=== PATIENT | male | born 1960 ===

== ENCOUNTER 2023-06-04 11:51 | Outpatient (REF) | payer MEDICAID, SELFPAY ==
[2023-06-05 02:34] LABS: Alanine Aminotransferase 43 U/L (0-40); Alkaline Phosphatase 63 U/L (39-117); Anion Gap 13 (12-20); Aspartate Amino Transferase 26 U/L (5-37); Bilirubin Direct < 0.1 mg/dL (0.0-0.5); Bilirubin Total 0.4 mg/dL (0.0-1.0); Blood Urea Nitrogen 15 mg/dL (9-16); Calcium 9.3 mg/dL (8.4-10.2); Carbon Dioxide 26 mmol/L (22-29); Chloride 102 mmol/L (96-108); Cholesterol 354 mg/dL; Estimated Glomerular Filt Rate > 60; Glucose Random 226 mg/dL (60-115); HDL Cholesterol 29 mg/dL; Potassium 4.2 mmol/L (3.3-5.1); Sodium 137 mmol/L (135-145); Total Protein 8.3 g/dL (6.5-8.0)
[2023-06-05 03:32] LABS: TSH reflex Free T4 > 100.00 uIU/mL (0.32-4.0)
[2023-06-05 04:00] LABS: Triglycerides 2115 mg/dL
[2023-06-05 04:21] LABS: Free T4 (Free Thyroxine) < 0.42 ng/dL (0.71-1.85)
[2023-06-05 05:17] LABS: HIV AB/AG Nonreactive (Nonreactive); HIV Num 1 0.08 S/CO (0.00-0.99)
== END 2023-06-04 11:52 | disposition home or self-care (01) ==
LOC: HO.HHCL 11:51
PROVIDERS: Visit Provider Registered Nurse
DX: Z00.00 Encounter for general adult medical examination without abnormal findings (principal); Z12.5 Encounter for screening for malignant neoplasm of prostate; Z11.4 Encounter for screening for human immunodeficiency virus [HIV]; E03.9 Hypothyroidism, unspecified; E11.65 Type 2 diabetes mellitus with hyperglycemia
CPT/HCPCS: 36415; 80053; 80061; 82248; 84153; 84439; 84443; 87389

== ENCOUNTER 2023-08-21 09:30 | Outpatient (REF) | payer MEDICAID, SELFPAY | END 2023-08-21 09:31 | disposition home or self-care (01) | LOC: HO.HHCL 09:30 | PROVIDERS: Visit Provider Registered Nurse | DX: E03.8 Other specified hypothyroidism (principal); E06.3 Autoimmune thyroiditis; E11.65 Type 2 diabetes mellitus with hyperglycemia | CPT/HCPCS: 36415; 80061; 84443 ==

== ENCOUNTER 2024-04-15 08:16 | Outpatient (AMB) | payer MEDICAID, SELFPAY ==
--- NOTE | 2024-04-15 08:24 | MHC.OFFVIS ---
Vital Signs 04/15/24 08:33 Height 5 ft 5 in Weight 203 lb 4.259 oz BMI 33.8 Intake Visit Reasons: Colonoscopy Screening Intake Note: Sree presents in the office as a new patient for a colonoscopy screening. CC: HE states that he is having numbness in the fingers. He states that he drank the gallon that was given to him so he is having diarrhea as he prepped for the colonoscopy. He states this is the second time. Hop Worker Required: Yes Hop Worker Name: [id number] Steph Allergies No Known Allergies Allergy (Verified 04/15/24 08:33) HPI HPI Colonoscopy Screening: Details: 64 year old?male with past medical history of diabetes, hypercholesteremia, hypothyroidism is here today for pre colonoscopy screening.? Patient was sent to us by his PCP.? Patient reports that his PCP send prep to pharmacy and told him to prep before going for appointment. Patient was on clear liquids yesterday and did prep and thought that he was coming in for colonoscopy today. ?Patient had colonoscopy 1 year ago, however had suboptimal prep and was told to return. Procedure was done at [facility]. Patient denies any gastrointestinal symptoms in the past or at present.? Denies any personal or family history of gastrointestinal disease, colon polyps, or CRC.? Denies history of difficulty with sedation or anesthesia in the past.? Negative for history of sleep apnea.? Denies any history of cardiac, renal, pulmonary, or hepatic disease.?? No history of infectious? diseases like hepatitis A, B, C, HIV or tuberculosis.? Patient is not on any anticoagulation Review of Systems Const Denies weight gain and Denies weight loss ENT Reports no additional complaints, Denies dysphagia and Denies odynophagia Card Reports no additional complaints Resp Reports no additional complaints GI Denies abdominal pain, Denies belching, Denies melena, Denies bloating, Denies change in bowel habits, Denies dysphagia, Denies excessive flatus, Denies dyspepsia, Denies heartburn, Denies diarrhea, Reports loose stools (Patient took prep yesterday), Denies nausea, Denies odynophagia and Denies vomiting Reports no additional complaints Musc Reports no additional complaints Neuro Reports no additional complaints Psych Reports no additional complaints Endo Reports no additional complaints Physical Exam Vital Signs: BMI result Body Mass Index 33.8 Const General: healthy appearing and no acute distress Nutritional Appearance: obese Orientation/consciousness: patient oriented x3 Resp Effort & Inspection: normal respiratory effort, able to speak in complete sentences, no tracheal deviation and symmetric chest movement Auscultation: clear to auscultation bilaterally Cardio Rate: regular rate GI Inspection: Yes normal to inspection, No distended and Yes obesity Palpation (GI): Soft to palpation, not firm, nontender and No hepatosplenomegaly present Auscultation: normal bowel sounds General: Yes no CVA tenderness Back/Spine/Pelvis Back: no CVA tenderness Skin General skin exam: elasticity normal, turgor normal and dry skin Neuro General: patient oriented x3 Psych Appearance: grossly normal Mental Status: mental status grossly normal Assessment & Plan Assessment & Plan (1) Screen for colon cancer: Code(s): Z12.11 - Encounter for screening for malignant neoplasm of colon Plan Patient denies any GI, cardiac or respiratory symptoms.? Denies any issues with anesthesia in the past.? Denies any history of sleep apnea.? No history infectious diseases in the past or present.? Not on any anticoagulation therapy.? No family or personal history of colon cancer or polyps.? Patient had suboptimal prep 1 year ago and recommendation was made for patient to repeat colonoscopy in 1 year. Patient denies melena, hematochezia, unintentional weight loss or ribbon like stools.? Discussed at length the pre-procedure,? prep, diet & medications as well as what to expect prior, during and after the procedure.?? Stressed the importance of good bowel prep.? Recommended the use of Vaseline or Calmoseptine OTC & baby wipes with bowel movements to promote comfort.? ?Patient verbalizes understanding and agrees to plan of care.? He was given the opportunity to ask questions and all questions answered.? We will see him after the procedure.? Coding Level of Care Code New Pt Level 3 (40532) Diagnoses Screen for colon cancer Z12.11 Time Spent (min) 40 Comment 30 minutes spent with patient and additional 10 minutes spent reviewing his records
[2024-04-15 08:33] VITALS: BMI 33.8
== END 2024-04-15 09:08 | disposition home or self-care (01) ==
PROVIDERS: Visit Provider Nurse Practitioner Family
DX: Z12.11 Encounter for screening for malignant neoplasm of colon (principal); Z01.818 Encounter for other preprocedural examination
CPT/HCPCS: 99203

== ENCOUNTER → 2024-04-15 08:16 | Outpatient (BNVA) | payer MEDICAID, SELFPAY | PROVIDERS: Visit Provider Nurse Practitioner Family | DX: Z12.11 Encounter for screening for malignant neoplasm of colon (principal) | CPT/HCPCS: 99202; 99212 ==

== ENCOUNTER 2024-09-23 06:06 | Day surgery (SDC) | payer MEDICAID, SELFPAY ==
[2024-09-21 09:36] VITALS: BMI 33.8
--- NOTE | 2024-09-22 08:17 | HO.ANESPROP2 ---
Documented by User: Loan Kruse NP 09/22/24 08:18 HPI - Anesthesia Eval Consult details Narrative: 64yo M for Colonoscopy Anesthesia Pre-Procedure Meds Is the patient on any of the following meds?: GLP1/DPP4 PMFSH Past Medical History Medical History Elevated cholesterol Hypothyroid HTN (hypertension) Diabetes Surgical History Surgical History H/O colonoscopy Social History Social History Patient Tobacco Use Status: Never used Tobacco Have you been hit, kicked, punched, or otherwise hurt by someone within the past year? If so, by whom?: No Are you DNR?: No Advance Directives: No Advance Directives Information Provided: Yes Meds Allergies Allergy/AdvReac Type Severity Reaction Status Date / Time No Known Allergies Allergy Verified 04/15/24 08:33 Home Medications ?Medication ?Instructions ?Recorded ?Confirmed ?Last Taken ?Type blood pressure test kit-large #1 ea 04/15/24 Unknown History blood sugar diagnostic (FreeStyle #10 ea 04/15/24 Unknown History Lite Strips) dulaglutide 1.5 mg/0.5 mL 1.5 mg subcut QWEEK 04/15/24 09/21/24 09/13/24 History subcutaneous pen injector (Trulicity) fenofibrate micronized 67 mg 67 mg PO QAM 04/15/24 09/21/24 Unknown History capsule glucose 4 gram chewable tablet 16 g PO ONCE PRN Hypoglycemia 04/15/24 09/21/24 Unknown History levothyroxine 100 mcg tablet 100 mcg PO QAM 04/15/24 09/21/24 Unknown History metformin 500 mg tablet,extended 500 mg PO BID 04/15/24 09/21/24 Unknown History release 24 hr olmesartan 5 mg tablet 5 mg PO DAILY 04/15/24 09/21/24 Unknown History rosuvastatin 20 mg tablet 20 mg PO QAM 04/15/24 09/21/24 Unknown History Exam Height,Weight and Vital Signs: Height 5 ft 5 in Weight 92.079 kg Assessment and Plan Assessment Anesthesia Assessment: Chart Reviewed Documented by User: Ivette Bruno MD 09/23/24 08:53 PMFSH Past Medical History Medical History Elevated cholesterol Hypothyroid HTN (hypertension) Diabetes Family History Family history of problems with anesthesia: No Surgical History Surgical History H/O colonoscopy History of Problems with Anesthesia: No Social History Social History Patient Tobacco Use Status: Never used Tobacco Have you been hit, kicked, punched, or otherwise hurt by someone within the past year? If so, by whom?: No Are you DNR?: No Advance Directives: No Advance Directives Information Provided: Yes Meds Allergies Allergy/AdvReac Type Severity Reaction Status Date / Time No Known Allergies Allergy Verified 04/15/24 08:33 Home Medications ?Medication ?Instructions ?Recorded ?Confirmed ?Last Taken ?Type blood pressure test kit-large #1 ea 04/15/24 Unknown History blood sugar diagnostic (FreeStyle #10 ea 04/15/24 Unknown History Lite Strips) dulaglutide 1.5 mg/0.5 mL 1.5 mg subcut QWEEK 04/15/24 09/21/24 09/13/24 History subcutaneous pen injector (Trulicity) fenofibrate micronized 67 mg 67 mg PO QAM 04/15/24 09/21/24 Unknown History capsule glucose 4 gram chewable tablet 16 g PO ONCE PRN Hypoglycemia 04/15/24 09/21/24 Unknown History levothyroxine 100 mcg tablet 100 mcg PO QAM 04/15/24 09/21/24 Unknown History metformin 500 mg tablet,extended 500 mg PO BID 04/15/24 09/21/24 Unknown History release 24 hr olmesartan 5 mg tablet 5 mg PO DAILY 04/15/24 09/21/24 Unknown History rosuvastatin 20 mg tablet 20 mg PO QAM 04/15/24 09/21/24 Unknown History Exam Airway Mallampati Class: II TM Dist: >3cm Neck ROM: Limited Loose/Missing/Broken Teeth: Yes Heart: rrr Lungs: cta Assessment and Plan Assessment Anesthesia Assessment: Anesthesia Plan Discussed Final Anesthetic Review Family History of Problems with Anesthesia: No History of Problems with Anesthesia: No NPO: Yes ASA Class: III Final Preanesthetic Review: No Changes in Pt Med Stat, Meds/Allgs Chart Reviewed, Consent Obtained/Reviewed and Anes Risks/Benef Reviewed Patient Risk: Intermediate Procedure Risk: Low Anesthetic Plan Anesthetic Plan: MAC: Disposition: Standard PACU
[2024-09-23 06:38] VITALS: BP 150/96; PULSE 80; RESP 20; TEMP 36.9; O2SAT 97; BMI 33.5
[2024-09-23 07:01] LABS: Glucose, Whole Blood 106 mg/dL (60-115)
[2024-09-23] MEDS: Lactated Ringers 1,000 ML 100 ML IVCONT (07:05)
--- NOTE | 2024-09-23 08:55 | MHC.SHP ---
Pre-Procedural Eval Section A - 24 Hr Update-Section A only Date of Service: 09/23/24 Section B - Complete if H&P > 30 days Chief Complaint: Encounter for screening for malignant neoplasm of Details of Present Illness: diabetes, hypercholesteremia, hypothyroidism Allergies: Allergies Allergy/AdvReac Type Severity Reaction Status Date / Time No Known Allergies Allergy Verified 04/15/24 08:33 Review of Systems Review of Systems Comment: Ten point ROS negative Exam Exam Comment: Gen appear: No acute distress HEENT: no icterus Chest: No overt resp distress Abd: soft, nontender, nondistended Psych: Stable affect, answering questions appropriately Neuro: A/Ox3 noted to move all extremities spontaneously Ext: no peripheral edema Plan Diagnosis/Plan: Unchanged I have reviewed the history and physical and performed a pertinent physical examination on my patient. No changes have occurred unless specified. Time Spent With Patient Time: Total time managing care of this patient today ____ minutes.
[2024-09-23 09:27] VITALS: BP 116/65; PULSE 80; RESP 16; TEMP 36.1; O2SAT 96
--- NOTE | 2024-09-23 09:35 | P.OPN-COLO_ITS ---
Colonoscopy Operative Note Operative Note Date of Service: 09/23/24 Narrative: Procedure: Colonoscopy Indication: Screening Endoscopist: Jimena Encarnacion MD Anesthesia Provider: Kathrine Sandhu CRNA Anesthesia type: MAC Instrument: Olympus [id number]-[id number] Consent: Indication, risks vs benefits, and alternatives were discussed with the patient who gave written informed consent to proceed. An muskrat trapper was utilized to assist with the consent. EKG, pulse, pulse oximetry and blood pressure were monitored throughout the procedure. Please see anesthesia flowsheet. Procedure: The patient was brought to the procedure room and placed in the left lateral decubitus position. IV medications were administered by the anesthesia provider in attendance. A digital rectal exam was performed which was normal. A distal attachment cap was affixed to the tip of the colonoscope which was then inserted through the anus and advanced through the colon to the cecum at 85 cm,and terminal ileum. Appendiceal orifice and ileocecal valve were identified. Mucosa was carefully examined under high definition white light as the instrument was slowly withdrawn in a retrograde panoramic fashion. Retroflexion was performed in rectum. The procedure was somewhat difficult. There were no immediate obvious complications. The quality of the prep was BBPS: 2+3+2 = adequate Withdrawal time 12 minutes. Limitations: No limitations. Findings: Mucosa: Normal to cecum and terminal ileum. Protruding lesions: * 2 sessile polyps of size 4-6 mm in transverse colon. Cold snare polypectomy was performed. The polyp was completely removed and retrieved. * Medium internal hemorrhoids without stigmata of recent bleeding. Excavated lesions: * Mild diverticulosis of left colon Impression: 1. Normal colon mucosa 2. Total of 2 polyps removed 3. Internal hemorrhoids 4. Diverticulosis Recommendations: - Follow path results. - Repeat colonoscopy in 5-7 years if polyps are adenomas.
[2024-09-23 09:43] VITALS: BP 101/68; PULSE 74; RESP 16; TEMP 36.1; O2SAT 97
== END 2024-09-23 10:31 | disposition home or self-care (01) ==
PROVIDERS: PCP Registered Nurse; Visit Provider Internal Medicine
PROC: 0DJD8ZZ Inspection of Lower Intestinal Tract, Via Natural or Artificial Opening Endoscopic (ICD-10-PCS; CPT 45378; principal; 2024-09-23 07:40)
DX: Z12.11 Encounter for screening for malignant neoplasm of colon (principal); D12.3 Benign neoplasm of transverse colon; K57.30 Diverticulosis of large intestine without perforation or abscess without bleeding; K64.8 Other hemorrhoids; E11.9 Type 2 diabetes mellitus without complications; I10 Essential (primary) hypertension; E78.00 Pure hypercholesterolemia, unspecified; E03.9 Hypothyroidism, unspecified; Z79.02 Long term (current) use of antithrombotics/antiplatelets; Z79.84 Long term (current) use of oral hypoglycemic drugs; Z79.4 Long term (current) use of insulin
CPT/HCPCS: 45385; 82947; 88305; J2003; J2704

== ENCOUNTER → 2024-09-23 06:06 | Outpatient (BNV) | payer MEDICAID, SELFPAY | PROVIDERS: PCP Registered Nurse; Visit Provider Internal Medicine | DX: Z12.11 Encounter for screening for malignant neoplasm of colon (principal); D12.3 Benign neoplasm of transverse colon; K64.8 Other hemorrhoids; K57.30 Diverticulosis of large intestine without perforation or abscess without bleeding | CPT/HCPCS: 45385 ==

== ENCOUNTER 2024-10-20 13:27 | Outpatient (AMB) | payer MEDICAID, SELFPAY ==
[2024-10-20 13:27] VITALS: BP 148/92; PULSE 82; O2SAT 96; BMI 34.2
--- NOTE | 2024-10-20 13:27 | A.OFFVIS_ITS ---
Vital Signs 10/20/24 13:27 Height 5 ft 5 in Weight 205 lb 7.533 oz BMI 34.2 BP 148/92 H Blood Pressure Location Lt brachial Position Sitting Pulse 82 Pulse Source Pulse Oximeter Pulse Oximetry (%) 96 Oxygen Delivery Method Room Air Intake Visit Reasons: s/p colon Intake Note: Relevant Flags or Indicators ? Requires Supervisor Major Appliance Assembly? Y Sree presents in office today for a scheduled s/p FUV (colo) CC; No recent labs, diagnostics, or med orders placed. ? Relevant new concerns or significant changes? No significant changes per pt. ? Hx of any recent surgeries? [place] w/ Dr. Encarnacion Supervisor Major Appliance Assembly Required: Yes Supervisor Major Appliance Assembly Services: Supervisor Major Appliance Assembly Present Supervisor Major Appliance Assembly Name: [id number] Braden Hodge Information Interpreted: non-clinical & clinical Accompanied by: Family/Other Allergies No Known Allergies Allergy (Verified 10/20/24 13:28) HPI HPI s/p colon: Details: LAST VISIT: Screen for colon cancer Plan Patient denies any GI, cardiac or respiratory symptoms.? Denies any issues with anesthesia in the past.? Denies any history of sleep apnea.? No history infectious diseases in the past or present.? Not on any anticoagulation therapy.? No family or personal history of colon cancer or polyps.? Patient had suboptimal prep 1 year ago and recommendation was made for patient to repeat colonoscopy in 1 year. Patient denies melena, hematochezia, unintentional weight loss or ribbon like stools.? Discussed at length the pre-procedure,? prep, diet & medications as well as what to expect prior, during and after the procedure.?? Stressed the importance of good bowel prep.? Recommended the use of Vaseline or Calmoseptine OTC & baby wipes with bowel movements to promote comfort.? ?Patient verbalizes understanding and agrees to plan of care.? He was given the opportunity to ask questions and all questions answered.? We will see him after the procedure.? COLONOSCOPY: Findings: Mucosa: Normal to cecum and terminal ileum. Protruding lesions: * 2 sessile polyps of size 4-6 mm in transverse colon. Cold snare polypectomy was performed. The polyp was completely removed and retrieved. * Medium internal hemorrhoids without stigmata of recent bleeding. Excavated lesions: * Mild diverticulosis of left colon Impression: 1. Normal colon mucosa 2. Total of 2 polyps removed 3. Internal hemorrhoids 4. Diverticulosis Recommendations: - Follow path results. - Repeat colonoscopy in 5-7 years if polyps are adenomas. PATHOLOGY: Diagnosis Colon, transverse, polypectomies: - Tubular adenoma; negative for high-grade dysplasia or carcinoma. - Hyperplastic mucosal polyp TODAY'S VISIT: Patient is here today for follow-up and to discuss colonoscopy results. Patient denies any ill effects from the prep, anesthesia or procedure itself. Patient reports that he has been feeling well since the procedure. Denies any GI concerning symptoms. No family history of CRC. One hyperplastic polyp and 1 tubular adenoma without high-grade dysplasia or carcinoma. Recommendation for 5 year screening. Patient denies melena, hematochezia, unintentional weight loss or ribbon like stools. Denies dyspepsia, dysphagia or odynophagia PFSH Medical History (Updated 10/20/24 @ 14:04 by Mana Baker [facility]) Tubular adenoma of colon Elevated cholesterol Hypothyroid HTN (hypertension) Diabetes Surgical History (Reviewed 10/20/24 @ 13:28 by Dayne Scott [facility]) H/O colonoscopy Social History Patient Tobacco Use Status: Never used Tobacco Review of Systems Const Denies weight gain and Denies weight loss ENT Reports no additional complaints, Denies dysphagia and Denies odynophagia Card Reports no additional complaints Resp Reports no additional complaints GI Denies abdominal pain, Denies belching, Denies melena, Denies bloating, Denies change in bowel habits, Denies dysphagia, Denies excessive flatus, Denies dyspepsia, Denies heartburn, Denies diarrhea, Denies loose stools, Denies nausea, Denies odynophagia and Denies vomiting Reports no additional complaints Musc Reports no additional complaints Neuro Reports no additional complaints Psych Reports no additional complaints Endo Reports no additional complaints Physical Exam Vital Signs: Last Vital Signs Pulse 82 10/20/24 13:27 BP 148/92 H 10/20/24 13:27 Pulse Ox 96 10/20/24 13:27 Oxygen Delivery Method Room Air 10/20/24 13:27 BMI result Body Mass Index 34.2 Const General: healthy appearing and no acute distress Nutritional Appearance: obese Orientation/consciousness: patient oriented x3 Resp Effort & Inspection: normal respiratory effort, able to speak in complete sentences, no tracheal deviation and symmetric chest movement Auscultation: clear to auscultation bilaterally Cardio Rate: regular rate GI Inspection: Yes normal to inspection, No distended and Yes obesity Palpation (GI): Soft to palpation, not firm, nontender and No hepatosplenomegaly present Auscultation: normal bowel sounds General: Yes no CVA tenderness Back/Spine/Pelvis Back: no CVA tenderness Skin General skin exam: elasticity normal, turgor normal and dry skin Neuro General: patient oriented x3 Psych Appearance: grossly normal Mental Status: mental status grossly normal Assessment & Plan Assessment & Plan (1) Tubular adenoma of colon: Code(s): D12.6 - Benign neoplasm of colon, unspecified Category: Medical (2) Status post colonoscopy: Code(s): Z98.890 - Other specified postprocedural states Plan Next colo screen in 5 years. Patient will be due in September of 2029. One tubular adenoma without high-grade dysplasia or carcinoma found. Patient denies any family history of CRC. Denies any melena, hematochezia. No GI concerning symptoms. Patient will call our office if he will have any concerns. Follow-up as needed. Patient is agreeable to current plan of care and verbalizes understanding of instructions. He was given the opportunity to ask questions and all questions answered. Thank you for allowing me to participate in his care Coding Level of Care Code Est Pt Level 3 (27574) Diagnoses Tubular adenoma of colon D12.6 Status post colonoscopy Z98.890 Time Spent (min) 25 Comment 15 minutes spent with patient and additional 10 minutes spent reviewing his records
== END 2024-10-20 14:21 | disposition home or self-care (01) ==
PROVIDERS: Visit Provider Nurse Practitioner Family
DX: D12.6 Benign neoplasm of colon, unspecified (principal); Z98.890 Other specified postprocedural states
CPT/HCPCS: 99213

== ENCOUNTER → 2024-10-20 13:27 | Outpatient (BNVA) | payer MEDICAID, SELFPAY | PROVIDERS: Visit Provider Nurse Practitioner Family | DX: D12.6 Benign neoplasm of colon, unspecified (principal); Z98.890 Other specified postprocedural states | CPT/HCPCS: 99212 ==

== ENCOUNTER 2025-07-06 11:35 | Outpatient (REF) | payer MEDICARE, SELFPAY ==
--- NOTE | ~2025-07-06 | XR_ITS ---
EXAMINATION: XR FOOT, RIGHT CLINICAL INFORMATION: 64 y.o male with hx of gout at first MCP joint COMPARISON: None available. TECHNIQUE: AP, lateral, and oblique views of the right foot. FINDINGS: Moderate enthesophytes are present involving fascial and Achilles attachments onto calcaneus. There are marginal osteophytes involving the tibial plafond. There are small marginal ossified involving the dorsal midfoot. There is hallux valgus deformity. There are degenerative changes with moderate marginal osteophytes involving the first MTP joint with mild joint space narrowing. There is a possible marginal erosion with overhanging margins involving the lateral first metatarsal head. There is also faint osteopenia involving the medial base of the proximal phalanx. There are marginal osteophytes involving the second PIP joint. 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 Suspected erosive change involving the medial base of the proximal phalanx of the great toe. Possible changes involving the lateral first metatarsal head. 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 Electronically signed by: Kiran Jay MD 07/06/2025 12:34 PM EDT
--- OUTSIDE RECORDS SUMMARY | 2025-07-06 12:56 | XMS_ITS | Encounter Summary ---
Author Organization [employer] Address [address] [place] [address] Care Team Providers Care Tree Trimming Supervisor Name Role Phone [facility] Primary Care Provider [phone] Encounter Details Date Type Department Care Team (Late st Contact Info) Description 06/05/2023 Abstract [facility] [address] [place] [address] [facility] [address] [place] [address] Social History Tobacco Use Types Packs/Day Years Used Date Smoking Tobacco: Never Smokeless Tobacco: Never Alcohol Use Standard Drinks/Week Comments Never 0 (1 standard drink = 0.6 oz pur e alcohol) PHQ-2 Answer Date Recorded Patient Health Questionnaire-2 Score 0 06/04/2023 Sex and Gender Information Value Date Recorded Sex Assigned at Male 06/02/2023 2:27 PM EDT Legal Sex Male 2:55 PM EST Gender Identity Male 06/02/2023 2:27 PM EDT Sexual Orientation Straight 06/04/2023 10 :32 AM EDT documented as of this encounter Plan of Treatment Upcoming Encounters Date Type Department Care Team (Late st Contact Info) Description 07/27/2025 3:15 PM EDT Office Visit [facility] [address] [place] [id number] [facility] [address] [place] [address] documented as of this encounter Visit Diagnoses Not on filedocumented in this encounter Additional Health Concerns Assessment Noted Time PHQ-9 Depression Total Score: 0 06/04/20 23 10:59 AM EDT documented as of this encounter Care Teams Tree Trimming Supervisor Relationship Specialty Start Date End Date Winn[place]ow SANDRINE Mora [address] [place] [id number] PCP - General Family Medicine 06/04/23 documented as of this encounter
--- OUTSIDE RECORDS SUMMARY | 2025-07-06 12:56 | XMS_ITS | Clinical Summary ---
Author Organization [address] [facility] Address [address] [place] [address] Phone Care Team Providers Care Agricultural Mechanic Name Role Phone [facility] Primary Care Provider [phone] Allergies No known active allergies Medications bisacodyL (DULCOLAX) 5 mg EC tablet Take 2 tablets by mouth right before your first dose of liquid prep. 4 Active bisacodyL (DULCOLAX) 5 mg EC tablet Take 2 tablets by mouth right before your first dose of liquid prep. 3 Active metFORMIN (GLUCOPHAGE) 500 mg tablet Take 1 tablet (500 mg total) by mouth 2 (two) times a day with meals. 2 Active lancets (OneTouch Delica Plus Lancet) 33 gauge 1 each by Not Applicable route 1 (one) time each day. 1 Active blood-glucose meter kit Use to check blood sugar once daily 1 Active Immunizations Name Administration Dates Next Due Influenza Quadravalent, MDCK , 0.5ml, preservative free (Flucelvax) 6mo and older 10/08/2021 Surgical History Surgery Date Site/Laterality Comments KNEE SURGERY Left PROCEDURE: HISTORICAL KNEE SURGERY Medical History Medical History Date Comments HTN (hypertension) DX:HTN (hyper tension) Type 2 diabetes mellitus wit hout complications (CMS/HCC V24, CMS/HCC V28) DX:Type 2 kenyetta betes mellitus without complications (HCC) Hypothyroidism DX:Hypothyroidis m Social History Tobacco Use Types Packs/Day Years Used Date Smoking Tobacco: Never Smokeless Tobacco: Never Alcohol Use Standard Drinks/Week Comments Not Asked 0 (1 standard drink = 0.6 oz pur e alcohol) Sex and Gender Information Value Date Recorded Sex Assigned at Not on file Legal Sex Male 4:31 AM EST Gender Identity Not on file Sexual Orientation Not on file Obstetrics History Last Filed Vital Signs Vital Sign Reading Time Taken Comments Blood Pressure 146/70 07/10/2022 2:39 PM EDT Pulse 91 07/10/2022 2:39 PM EDT Temperature - - Respiratory Rate - - Oxygen Saturation - - Inhaled Oxygen Concentration - - Weight 92.5 kg (204 lb) 02/02/2025 2:48 PM EDT Height - - Body Mass Index - - Plan of Treatment Health Maintenance Due Date Last Done Comments Diabetes: Annual Foot Exam 02/04/1970 Diabetes: Annual Retina Eye Exam 02/04/1970 Pneumococcal Vaccine: 50+ Years (1 of 2 - PCV) 02/04/1979 Zoster Vaccines (1 of 2) 02/04/2010 RSV Immunization Adult Patients (1 - Risk 60-74 years 1-dose series) 2020 Diabetes: Annual GFR (Glomerular Filtration Rate) 10/08/2022 10/08/2021 Medicare Annual Wellness Visit 10/27/2022 Social Influencers of Health Screening 10/27/2022 Diabetes: Annual Urine Albumin-Creatinine Ratio (uACR) 11/04/2024 Depression Screening 11/17/2024 Hypertension/CHF/CAD Annual BMP Blood Test 02/03/2025 10/08/2021 Falls Risk Assessment 02/04/2025 COVID-19 Vaccine (4 - 2023-2 5 season) 2025 10/29/2024, 12/26/2023, 06/23/2021 Diabetes: Blood Sugar Contro l Test (HGBA1C) 04/29/2025 10/29/2024, 10/08/2021 Influenza Vaccine (#1) 2025 , 08/13/2023, 10/08/2021 Cholesterol Screening (Lipid Panel) 08/21/2028 08/21/2023, 10/08/2021 Colorectal Cancer Screening: Colonoscopy 02/21/2033 02/21/2023 DTaP,Tdap,and Td Vaccines (2 - Td or Tdap) 12/26/2033 12/26/2023 Hepatitis C Screening Completed 10/08/2021 HIB Vaccines Aged Out No longer eligi ble based on patient's age to complete this topic HPV Vaccines Aged Out No longer eligi ble based on patient's age to complete this topic Hepatitis A Vaccines Aged Out No long er eligible based on patient's age to complete this topic Hepatitis B Vaccines Aged Out No long er eligible based on patient's age to complete this topic IPV Vaccines Aged Out No longer eligi ble based on patient's age to complete this topic MMR Vaccines Aged Out No longer eligi ble based on patient's age to complete this topic Meningococcal ACWY Vaccine Aged Out N o longer eligible based on patient's age to complete this topic Meningococcal B Vaccine Aged Out No l onger eligible based on patient's age to complete this topic RSV Immunization Patients Under 20 months Aged Out No longer eligible b ased on patient's age to complete this topic Varicella Vaccines Aged Out No longer eligible based on patient's age to complete this topic Procedures Procedure Name Priority Date/Time Associated Diagnosis Comments COLONOSCOPY Routine 02/21/2023 HEPATITIS C SCREENING Routine 10/08/2021 ANNUAL BMP BLOOD TEST Routine 10/08/2021 HEMOGLOBIN A1C Routine 10/08/2021 LIPID PANEL Routine 10/08/2021 from Last 3 Months or Most Recently Relevant to Health Maintenance Results * Colonoscopy (02/21/2023) [facility] Colonoscopy Abstracted, No Interpretation Anatomical Region Laterality Modality Other [facility] Provider HEALTH MAINTENANCE Final Result * Annual BMP Blood Test (10/08/2021) [facility] Annual BMP Blood Test Abstracted [facility] Provider HEALTH MAINTENANCE Final Result * Hepatitis C Screening (10/08/2021) [facility] Hepatitis C Screening Abstracted [facility] Provider HEALTH MAINTENANCE Final Result * (ABNORMAL) Hemoglobin A1c (10/08/2021) [facility] Hemoglobin A1C 10.2(A) <=6.5 % Blood Venous blood specimen / Unknown us Historical Provider LAB BLOOD ORDERABLES Leti l Result * (ABNORMAL) Lipid panel (10/08/2021) LDL/HDL Ratio 10(A) 0 - 4 Triglycerides 1,317(A) 0 - 150 mg/dL Cholesterol 305(A) 0 - 200 mg/dL HDL 32(A) >=40 mg/dL LDL Cholesterol 0 0 - 100 mg/dL Comment:TNP Blood Venous blood specimen / Unknown us Historical Provider LAB BLOOD ORDERABLES Leti l Result from Last 3 Months or Most Recently Relevant to Health Maintenance Insurance MEDICAID - [place] MEDICARE Care Teams Agricultural Mechanic Relationship Specialty Start Date End Date Goleta Abby [address] [place] [phone] PCP - General Family Medicine 11/04/24
[2025-07-06 15:09] LABS: Alanine Aminotransferase 54 U/L (0-40); Albumin Level 4.4 g/dL (3.5-5.0); Alkaline Phosphatase 59 U/L (39-117); Anion Gap 13 (12-20); Aspartate Amino Transferase 44 U/L (5-37); Blood Urea Nitrogen 20 mg/dL (9-16); Calcium 9.4 mg/dL (8.4-10.2); Carbon Dioxide 30 mmol/L (22-29); Chloride 101 mmol/L (96-108); Cholesterol 260 mg/dL (<200); Estimated Glomerular Filt Rate 57; HDL Cholesterol 30 mg/dL (>40); Potassium 4.6 mmol/L (3.3-5.1); Sodium 139 mmol/L (135-145); Total Protein 7.6 g/dL (6.5-8.0); Triglycerides 749 mg/dL (<150); Uric Acid 9.0 mg/dL (3.4-7.0)
[2025-07-06 16:04] LABS: Free T4 (Free Thyroxine) < 0.42 ng/dL (0.71-1.85)
[2025-07-06 16:29] LABS: Microalbum/Creatinine Ratio Ur 1197.5 ug/mg cr (<30)
== END 2025-07-06 11:36 | disposition home or self-care (01) ==
LOC: HO.HHCL 11:35
PROVIDERS: PCP Registered Nurse; Visit Provider Registered Nurse
DX: E11.65 Type 2 diabetes mellitus with hyperglycemia (principal); E03.9 Hypothyroidism, unspecified; E78.2 Mixed hyperlipidemia; M1A.9XX0 Chronic gout, unspecified, without tophus (tophi)
CPT/HCPCS: 36415; 73630; 80053; 80061; 82043; 82570; 84439; 84443; 84550

== ENCOUNTER → 2025-07-06 11:54 | Outpatient (BNV) | payer MEDICARE, SELFPAY | PROVIDERS: PCP Registered Nurse; Visit Provider Radiology Diagnostic Radiology | DX: M20.11 Hallux valgus (acquired), right foot (principal) | CPT/HCPCS: 73630 ==

== ENCOUNTER 2025-08-31 15:26 | Outpatient (REF) | payer MEDICARE, SELFPAY ==
--- OUTSIDE RECORDS SUMMARY | 2025-08-31 14:45 | XMS_ITS | Encounter Summary ---
Author Organization [facility] Address [address] [facility] [address] [place] [address] Care Team Providers Care Photographic Restorer Name Role Phone Abby Yoo Primary Care Provider [phone] Reason for Referral * Medications - Closed Specialty Diagnoses / Procedures Referred By Miguelangel t Referred To Contact Diagnoses Type 2 diabetes mellitus with hyperglycemia, without long-term current use of insulin (HCC) Abby Yoo FNP [address] [place] [address] Phone: tel: fax: Referral ID Status Reason Start Date Expiration Date Visits Re quested Visits Authorized [id number] Closed 1 1 Reason for Visit * Reason Comments Follow-up Encounter Details Date Type Department Care Team ([facility] st Contact Info) Description 08/31/2025 2:45 PM EDT Office Visit [facility] [address] [place] [address] Abby Yoo FNP [address], [place] [phone] Type 2 diabetes mellitus with hyperglycemia, without long-term current use of insulin (HCC) (Primary Dx); Primary hypertension; 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; Healthcare maintenance; Dietary counseling; Exercise counseling; Class 1 obesity due to excess calories with serious comorbidity and body mass index (BMI) of 30.0 to 30.9 in adult; Encounter for vaccination; Encounter for immunization Social History Tobacco Use Types Packs/Day Years Used Date Smoking Tobacco: Never Smokeless Tobacco: Never Alcohol Use Standard Drinks/Week Comments Never 0 (1 standard drink = 0.6 oz pur e alcohol) Depression Answer Date Recorded Patient Health Questionnaire-9 Score 0 06/29/2025 Patient Health Questionnaire-9 Score 0 06/29/2025 Last PHQ-9: Questionnaire Data Not on file 0 06/29/2025 Housing Stability Answer Date Recorded What is your housing situation today? I have camila smith 09/03/[address] you li ve. Do you have problems with any of the following? None of the above 09/03/2023 Food Insecurity Answer Date Recorded Within the past 12 months, y ou worried that your food would run out before you got money to buy more: Never True 09/03/2023 Within the past 12 months,th e food you bought just didn't last and you didn't have enough money to get more: Never True Transportation Answer Date Recorded In the past 12 months, has l ack of transportation kept you from medical appts, meetings, work or from getting things needed for daily living? No 09/03/2023 Utilities Answer Date Recorded In the past 12 months, has t he electric, gas, oil or water company threatened to shut off services in your home? No 09/03/2023 Depression Answer Date Recorded Patient Health Questionnaire-2 Score 0 06/29/2025 Sex and Gender Information Value Date Recorded Sex Assigned at Male 06/02/2023 2:27 PM EDT Legal Sex Male 2:55 PM EST Gender Identity Male 06/02/2023 2:27 PM EDT Sexual Orientation Straight 06/04/2023 10 :32 AM EDT documented as of this encounter Last Filed Vital Signs Vital Sign Reading Time Taken Comments Blood Pressure 124/84 08/31/2025 2:35 PM EDT Pulse 64 08/31/2025 2:35 PM EDT Temperature 36.6 C (97.8 F) 08/31/2025 2:35 PM EDT Respiratory Rate 21 08/31/2025 2:35 PM EDT Oxygen Saturation - - Inhaled Oxygen Concentration - - Weight 88 kg (194 lb) 08/31/2025 2:35 PM EDT Height 170.2 cm (5' 7 ) 08/31/2025 2:35 PM EDT Body Mass Index 30.38 08/31/2025 2:35 PM EDT documented in this encounter Plan of Treatment Upcoming Encounters Date Type Department Care Team (Late st Contact Info) Description 09/20/2025 9:20 AM EST Office Visit [facility] [address] [place] [address] Scheduled Orders Name Type Priority Associated Diagnoses Orde r Schedule Comprehensive Metabolic Panel Lab Routine Type 2 diabetes mellitus with hyperglycemia, without long-term current use of insulin (HCC) Expected: 08/31/2025 (Approximate), Expires: 08/31/2026 Lipid Panel, Standard Lab Routine Type 2 diabetes mellitus with hyperglycemia, without long-term current use of insulin (HCC) Expected: 08/31/2025 (Approximate), Expires: 08/31/2026 TSH Lab Routine 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 Expected: 08/31/2025 (Approximate), Expires: 08/31/2026 documented as of this encounter Procedures Procedure Name Priority Date/Time Associated Diagnosis Comments PSA, TOTAL Routine 08/31/2025 3:30 PM EDT Healthcare maintenance documented in this encounter Results * PSA,Total (08/31/2025 3:30 PM EDT) Prostate Specific Antigen 1.33 <0.05 - 4.0 ng/mL [facility] Comment:PSA methodology: Ren Granado i ChemiluminescentMicroparticle Immunoassay (CMIA) Blood Venous blood specimen / Unknown 08/31/2025 3:30 PM EDT 08/31/2025 4:05 PM EDT [facility] [place] COMMUNITY HEALTH EDUCATION COORDINATOR LAB BLOOD ORDERABLES Final Re sult [facility] [address] [place] [phone] documented in this encounter Visit Diagnoses Diagnosis Type 2 diabetes mellitus with hyperglycemia, without long-term current use of insulin (HCC)- Primary Primary hypertension Unspecified essential hypertension 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 Healthcare maintenance Dietary counseling Dietary surveillance and counseling Exercise counseling Class 1 obesity due to excess calories with serious comorbidity and body mass index (BMI) of 30.0 to 30.9 in adult Encounter for vaccination Encounter for immunization documented in this encounter Additional Health Concerns Assessment Noted Time PHQ-9 Depression Total Score: 0 06/29/20 25 2:25 PM EDT documented as of this encounter Care Teams Photographic Restorer Relationship Specialty Start Date End Date Abby Yoo FNP [address] [place] [phone] PCP - General Family Medicine 06/04/23 documented as of this encounter
[2025-08-31 17:10] LABS: Alanine Aminotransferase 66 U/L (0-40); Albumin Level 5.3 g/dL (3.5-5.0); Alkaline Phosphatase 56 U/L (39-117); Anion Gap 10 (12-20); Aspartate Amino Transferase 39 U/L (5-37); Blood Urea Nitrogen 18 mg/dL (9-16); Calcium 10.2 mg/dL (8.4-10.2); Carbon Dioxide 32 mmol/L (22-29); Chloride 105 mmol/L (96-108); Cholesterol 120 mg/dL (<200); Estimated Glomerular Filt Rate > 60; HDL Cholesterol 26 mg/dL (>40); Potassium 4.8 mmol/L (3.3-5.1); Sodium 142 mmol/L (135-145); Total Protein 8.4 g/dL (6.5-8.0); Triglycerides 292 mg/dL (<150); Uric Acid 8.8 mg/dL (3.4-7.0)
[2025-08-31 17:23] LABS: Prostate Specific Antigen 1.33 ng/mL (<0.05-4.0)
[2025-08-31 17:28] LABS: Thyroid Stimulating Hormone 5.41 uIU/mL (0.32-4.0)
[2025-08-31 17:29] LABS: Microalbum/Creatinine Ratio Ur 330.4 ug/mg cr (<30)
--- OUTSIDE RECORDS SUMMARY | 2025-08-31 18:58 | XMS_ITS | Encounter Summary ---
Author Organization [employer] Address [address] [facility] 7[address] [place] [address] Care Team Providers Care Service Specialist Name Role Phone [facility] Primary Care Provider [phone] Reason for Visit * Reason Comments Med Refill Encounter Details Date Type Department Care Team ([facility] st Contact Info) Description 09/09/[address] [facility] [address] [place], [place] [phone] [facility] [address] [place], [place] [phone] Primary hypertension Social History Tobacco Use Types Packs/Day Years Used Date Smoking Tobacco: Never Smokeless Tobacco: Never Alcohol Use Standard Drinks/Week Comments Never 0 (1 standard drink = 0.6 oz pur e alcohol) Depression Answer Date Recorded Patient Health Questionnaire-9 Score 0 08/13/2023 Housing Stability Answer Date Recorded What is your housing situation today? I have camilaraheel smith 09/03/[address] you [...] Date Recorded Patient Health Questionnaire-2 Score 0 08/13/2023 Sex and Gender Information Value Date Recorded Sex Assigned at Male 06/02/2023 2:27 PM EDT Legal Sex Male 2:55 PM EST Gender Identity Male 06/02/2023 2:27 PM EDT Sexual Orientation Straight 06/04/2023 10 :32 AM EDT documented as of this encounter Plan of Treatment Upcoming Encounters Date Type Department Care Team (Late st Contact Info) Description 09/20/2025 9:20 AM EST Office Visit [facility] [address] [place] [address] documented as of this encounter Visit Diagnoses Diagnosis Primary hypertension Unspecified essential hypertension documented in this encounter Additional Health Concerns Assessment Noted Time PHQ-9 Depression Total Score: 0 08/13/20 3:26 PM EDT documented as of this encounter Care Teams Service Specialist Relationship Specialty Start Date End Date Abby Yoo FNP [address] [place] [phone] PCP - General Family Medicine 06/04/23 documented as of this encounter
--- OUTSIDE RECORDS SUMMARY | 2025-08-31 18:58 | XMS_ITS | Encounter Summary ---
Author Organization [facility] Address [address] [facility] 7[address] [place] [address] Care Team Providers Care Global Sales Manager Name Role Phone Abby Yoo [facility] Primary Care Provider [phone] Reason for Visit * Reason Comments Med Change Request Encounter Details Date Type Department Care Team (Late Contact Info) Description 07/29/[address] [facility] [address] [place] [address] Abby Yoo FNP [address] [place] [address] Primary hypertension Social History Tobacco Use Types Packs/Day Years Used Date Smoking Tobacco: Never Smokeless Tobacco: Never Alcohol Use Standard Drinks/Week Comments Never 0 (1 standard drink = 0.6 oz pur e alcohol) PHQ-2 Answer Date Recorded Patient Health Questionnaire-2 Score 0 06/25/2023 Sex and Gender Information Value Date Recorded Sex Assigned at Male 06/02/2023 2:27 PM EDT Legal Sex Male 2:55 PM EST Gender Identity Male 06/02/2023 2:27 PM EDT Sexual Orientation Straight 06/04/2023 10 :32 AM EDT documented as of this encounter Plan of Treatment Upcoming Encounters Date Type Department Care Team (Late st Contact Info) Description 09/20/2025 9:20 AM EST Office Visit [facility] [address] [place], [place] [phone] documented as of this encounter Visit Diagnoses Diagnosis Primary hypertension Unspecified essential hypertension documented in this encounter Additional Health Concerns Assessment Noted Time PHQ-9 Depression Total Score: 0 06/25/20 2:50 PM EDT documented as of this encounter Care Teams Global Sales Manager Relationship Specialty Start Date End Date Abby Yoo FNP [address] [place] [phone] PCP - General Family Medicine 06/04/23 documented as of this encounter
--- OUTSIDE RECORDS SUMMARY | 2025-08-31 18:58 | XMS_ITS | Clinical Summary ---
Author Organization [employer] Address [address] [place] [address] Care Team Providers Care International Coordinator Name Role Phone Fredo [facility] Primary Care Provider [phone] Allergies No known active allergies Medications glucose 4 g chewable tabletIndication s:Type 2 diabetes mellitus with hyperglycemia, without long-term current use of insulin (HCC) Chew 4 tablets (16 g) if needed for low blood sugar. 50 tablet 12 023 Active fenofibrate micronized (Lofibra) 67 MG capsuleIndicatio ns:Hypertriglyce ridemia Take 1 capsule (67 mg) by mouth with breakfast. 90 capsule 3 024 Active rosuvastatin (Crestor) 20 MG tabletIndication s:Mixed hyperlipidemia Take 1 tablet (20 mg) by mouth Once per day. 90 tablet 3 025 2025 Active olmesartan (BENIcar) 5 MG tabletIndication s:Primary hypertension TAKE 1 TABLET BY MOUTH EVERY MORNING. MAY INCREASE TO 2 TABLETS EVERY MORNING IF TOLERATED AND BLOOD PRESSURE > 140/90. 180 tablet 1 025 Active levothyroxine (Synthroid, Levoxyl) 100 MCG tabletIndication s:Hypothyroidism , unspecified type Take 1 tablet (100 mcg) by mouth in the morning. 30 tablet 3 025 Active metFORMIN XR (Glucophage-XR) 500 MG 24 hr tabletIndication s:Type 2 diabetes mellitus with hyperglycemia, without long-term current use of insulin (HCC) Take 1 tablet twice daily 180 tablet 3 025 Active Blood Pressure kitIndications:P rimary hypertension Use as directed 1 kit 025 Active Blood Glucose Monitoring Suppl (GNP Easy Touch Glucose Meter) deviceIndication s:Type 2 diabetes mellitus with hyperglycemia, without long-term current use of insulin (HCC) Use as directed to check blood sugar one time daily 1 each 025 Active Alcohol Swabs (Alcohol Prep) padsIndications: Type 2 diabetes mellitus with hyperglycemia, without long-term current use of insulin (HCC) Use one pad each to prep skin prior to injection as directed 100 each 11 Active glucose blood test stripIndications :Type 2 diabetes mellitus with hyperglycemia, without long-term current use of insulin (HCC) Use as directed to check blood sugar one time daily 100 each 12 025 Active Lancets 33G miscIndications: Type 2 diabetes mellitus with hyperglycemia, without long-term current use of insulin (HCC) Use as directed to check blood sugar one time daily 100 each 3 025 Active Tirzepatide (Mounjaro) 2.5 MG/0.5ML solution auto-injectorInd ications:Type 2 diabetes mellitus with hyperglycemia, without long-term current use of insulin (HCC) Inject 2.5 mg under the skin 1 (one) time per week. 2 mL 1 Active Tirzepatide (Mounjaro) 2.5 MG/0.5ML solution auto-injectorInd ications:Type 2 diabetes mellitus with hyperglycemia, without long-term current use of insulin (HCC) Inject 2.5 mg under the skin 1 (one) time per week. 2 mL 1 025 2024 Discontinued Alcohol Swabs (Alcohol Prep) padsIndications: Type 2 diabetes mellitus with hyperglycemia, without long-term current use of insulin (HCC) Use one pad each to prep skin prior to injection as directed 100 each 11 025 2024 Discontinued(R eorder (will not trigger notification to Pharmacy)) Blood Glucose Monitoring Suppl (GNP Easy Touch Glucose Meter) deviceIndication s:Type 2 diabetes mellitus with hyperglycemia, without long-term current use of insulin (HCC) Use as directed to check blood sugar three times daily 1 each 025 2024 Discontinued(R eorder (will not trigger notification to Pharmacy)) glucose blood test stripIndications :Type 2 diabetes mellitus with hyperglycemia, without long-term current use of insulin (HCC) Use as directed to check blood sugar three times daily 100 each 12 025 2024 Discontinued(R eorder (will not trigger notification to Pharmacy)) Lancets 33G miscIndications: Type 2 diabetes mellitus with hyperglycemia, without long-term current use of insulin (HCC) Use as directed to check blood sugar three times daily 100 each 3 025 2024 Discontinued(R eorder (will not trigger notification to Pharmacy)) Mounjaro 2.5 MG/0.5ML solution auto-injectorInd ications:Type 2 diabetes mellitus with hyperglycemia, without long-term current use of insulin ([facility]) INJECT ONE PEN (=2.5MG) SUBCUTANEOUSLY ONCE A WEEK DIRECTED 2 mL 1 2024 Discontinued(R eorder (will not trigger notification to Pharmacy)) Active Problems Problem Noted Date Diagnosed Date Primary hypertension 07/12/2023 Overview (08/26/2023): Olmesartan 10mg daily Maintenance: - Aerobic exercise to reduce BP. Initial goal of 30 min walk 3-5x/week. Increase as tolerated. - low-sodium diet (goal: <2g/day) and heart healthy diet such as DASH to reduce BP and prevent ASCVD. - Home BP monitoring 1-2 x day with goal of <140/90. - Seek immediate medical attention for chest pain, palpitations, SOB, syncope, or sudden changes in mental status. - Do not change or discontinue current prescriptions without first consulting health care provider Assessment & Plan (01/05/2024 9:45 PM EST): Well controlled Continue current regimen Assessment & Plan (08/26/2023 9:29 AM EDT): Well controlled Continue current regimen Assessment & Plan (07/12/2023 8:38 AM EDT): Well controlled Continue current regimen Hypothyroidism 07/12/2023 Overview (07/12/2023): Levothyroxine 100mcg TSH >100 05/2023-pt restarted levothyroxine Assessment & Plan (08/26/2023 9:29 AM EDT): - Repeat TSH today Hypertriglyceridemia 07/12/2023 Overview (07/12/2023): Fenofibrate 67mcg No hx of pancreatitis Assessment & Plan (08/26/2023 9:30 AM EDT): Repeat fasting lipid panel toda Mixed hyperlipidemia 07/12/2023 Overview (12/26/2023): Total cholesterol > 300 05/2023 Unable to calculate LDL d/t triglyceride levels Rosuvastatin 20mg daily Assessment & Plan (08/26/2023 9:30 AM EDT): Repeat lipid panel. Plan to titrate up rosuvastatin as indicated Assessment & Plan (07/12/2023 8:48 AM EDT): START rosuvastatin 10mg daily. Reviewed administration, risks, side effects Repeat lipid panel in 6 weeks Healthcare maintenance 07/12/2023 Overview (07/12/2023): C-Scope: 02/2023-poor prep; [facility] PSA: 05/2023 .40 Vision Exam: Referred to [facility] eye care 05/2023 Dental Care: Immunizations: Declines today Type II diabetes mellitus 06/04/2023 Overview (01/05/2024): Trulicity 1.5mg Metformin- 500mg b.i.d Foot Exam: 07/2023- Risk 0 Eye Exam: Referred 12/2023 ASCVD: Calculate pending updated labs Statin: YES ASA: No SERAFIN/ARB: Yes Encouraged regular aerobic exercise for improved glycemic control Encouraged daily foot checks Encouraged lean protein snacks and to avoid foods high in sugar and simple carbohydrates Treatment Goals: A1c goal: <7% FBG goal: <130 2 hour post prandial goal: <180 Assessment & Plan (01/05/2024 9:45 PM EST): Lab Results Component Value Date HGBA1C 6.0 12/26/2023 Well controlled Continue current regimen Assessment & Plan (08/26/2023 9:29 AM EDT): Lab Results Component Value Date HGBA1C 7.1 (A) 08/13/2023 Concern for episodes of hypoglycemia given significant decrease in A1c from 13 . Patient home BS log with occasional FBG in 70's. Patient denies sx DECREASE metformin to 500mg b.i.d Reviewed instructions for hypoglycemia. Glucotrol tabs rx'd Will discuss possible CGM and referral to [facility] DM educator at follow up if Assessment & Plan (07/12/2023 8:36 AM EDT): Lab Results Component Value Date HGBA1C 13.2 (A) 06/04/2023 Patent had been without medications for several months prior [facility]. 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; Healthcare maintenance; Dietary counseling; Exercise counseling; Class 1 obesity due to excess calories with serious comorbidity and body mass index (BMI) of 30.0 to 30.9 in adult; Encounter for vaccination; Encounter for immunization 08/31/2025 Travel 08/25/2025 Refill [facility] [address] [place] [phone] [place] [facility] Type 2 diabetes mellitus with hyperglycemia, without long-term current use of insulin (HCC) 07/26/[address] [phone] Funmilayo Florez [place] Chart Prep 07/07/2025 Results Follow-Up [facility] [address] [place], [place] [phone] Lisseth Perez FNP POCT HGB A1C, POCT Glucose, Comprehensive Metabolic Panel, Additional followed-up results: 4 06/29/2025 2:30 PM EDT Office Visit [facility] [address] [place] [phone] [facility] Type 2 diabetes mellitus with hyperglycemia, without long-term current use of insulin ([facility]) (Primary Dx); Primary hypertension; Mixed hyperlipidemia; Hypothyroidism, unspecified type; Chronic gout without tophus, unspecified cause, unspecified site 06/29/2025 Travel 06/28/2025 Telephone [facility] [address] [facility] [place] [phone] [place] [facility] Chart Prep from Last 3 Months Immunizations Immunization Administration Dates Next Due Influenza Injectable Quadriv alant Preservative Free IIV4 MDCK 10/08/2021 Influenza injectable quadriv alent preservative free 08/13/2023 Influenza, High Dose Seasona l, Preservative Free 08/31/2025 Influenza, seasonal, injecta ble, preservative free 10/29/2024 Pfizer Covid-19 Vaccine 12+ 08/31/2025,,12/26/2023 Pneumococcal Conjugate PCV 20 08/31/2025 TD (adult), 2 Lf tetanus tox oid, preservative free, adsorbed 12/26/2023 Tdap 08/31/2025 Family History Medical History Relation Name Comments Heart disease Brother Breast cancer Mother Relation Name Status Comments Brother Mother Social History Tobacco Use Types Packs/Day Years Used Date Smoking Tobacco: Never Smokeless Tobacco: Never Tobacco Cessation:Counseling Given: Not Answered Alcohol Use Standard Drinks/Week Comments Never 0 (1 standard drink = 0.6 oz pur e alcohol) Depression Answer Date Recorded Patient Health Questionnaire-9 Score 0 06/29/2025 Patient Health Questionnaire-9 Score 0 06/29/2025 Last PHQ-9: Questionnaire Data Not on file 0 06/29/2025 Housing Stability Answer Date Recorded What is your housing situation today? I have camila msith 09/03/[address] you li [...] Orientation Straight 06/04/2023 10 :32 AM EDT Last Filed Vital Signs Vital Sign Reading Time Taken Comments Blood Pressure 124/84 08/31/2025 2:35 PM EDT Pulse 64 08/31/2025 2:35 PM EDT Temperature 36.6 C (97.8 F) 08/31/2025 2:35 PM EDT Respiratory Rate 21 08/31/2025 2:35 PM EDT Oxygen Saturation 98% 10/29/2024 9:01 AM EST Inhaled Oxygen Concentration - - Weight 88 kg (194 lb) 08/31/2025 2:35 PM EDT Height 170.2 cm (5' 7 ) 08/31/2025 2:35 PM EDT Body Mass Index 30.38 08/31/2025 2:35 PM EDT Plan of Treatment Upcoming Encounters Date Type Department Care Team (Late st Contact Info) Description 09/20/2025 9:20 AM EST Office Visit [facility] OPTOMET[facility] [address] [place] [phone] Health Maintenance Due Date Last Done Comments CT Colonography 1960 FIT DNA/Cologuard 1960 FIT 1960 FOBT 1960 Sigmoidoscopy 1960 Eye Exam 02/04/1970 Hepatitis C Screening 02/04/1978 Zoster Vaccines (1 of 2) 02/04/2010 SDOH Screening 06/04/2024 06/04/2023 Diabetes: Hemoglobin A1C 09/29/2025 025, 10/29/2024, 12/26/2023, Additional history exists Diabetes: Foot Exam 10/29/2025 10/29/2024, 10/29/2024, 10/29/2024, Additional history exists Alcohol/Substance Use Screening 06/29/2026 06/29/2025 Depression Screening 06/29/2026 06/29/2025, 06/29/20 Tobacco Screening 06/30/2026 06/30/2025 Diabetes: Urine Protein Screening 08/31/2026 08/31/2025, 07/06/2025 Lipid Panel 08/31/2026 08/31/2025, 06/18, 08/21/2023, Additional history exists Colonoscopy 09/23/2029 09/23/2024 Colorectal Cancer Screening 09/23/2029 RSV Patients and Patients Aged 60 years or older (1 - 1-dose 75+ series) 02/04/2035 DTaP/Tdap/Td Vaccines (2 - Td or Tdap) 08/31/2035 08/31/2025, 12/26/2023 COVID-19 Vaccine Completed 08/31/2025, , 12/26/2023, Additional history exists Influenza Vaccine Completed 08/31/2025, , 08/13/2023, Additional history exists Pneumococcal Vaccine: 50+ Years Completed 08/31/2025 HIB Vaccines Aged Out No longer eligi [...] patient's age to complete this topic Meningococcal Vaccine Aged Out No myles sophia eligible based on patient's age to complete this topic RSV under 20 months Aged Out No longe r eligible based on patient's age to complete this topic Rotavirus Vaccines Aged Out No longer eligible based on patient's age to complete this topic Procedures Procedure Name Priority Date/Time Associated Diagnosis Comments PSA, TOTAL Routine 08/31/2025 3:30 PM EDT Healthcare maintenance URIC ACID Routine 08/31/2025 3:30 PM EDT Chronic gout without tophus, unspecified cause, unspecified site LIPID PANEL, STANDARD Routine 08/31/2025 3:30 PM EDT Mixed hyperlipidemia COMPREHENSIVE METABOLIC PANEL Routine 08/31/2025 3:30 PM EDT Type 2 diabetes mellitus with hyperglycemia, without long-term current use of insulin (HCC) TSH Routine 08/31/2025 3:30 PM EDT Hypothyroidism, unspecified type ALBUMIN, RANDOM URINE W/CREATININE Routine 08/31/2025 1:20 PM EDT Type 2 diabetes mellitus with hyperglycemia, without long-term current use of insulin (HCC) T4, FREE Routine 07/06/2025 11:42 AM EDT ALBUMIN, RANDOM URINE W/CREATININE Routine 07/06/2025 11:42 AM EDT Type 2 diabetes mellitus with hyperglycemia, without long-term current use of insulin (CMS/HCC) URIC ACID Routine 07/06/2025 11:42 AM EDT Chronic gout without tophus, unspecified cause, unspecified site TSH W/REFLEX TO FT4 Routine 07/06/2025 1 1:42 AM EDT Hypothyroidism, unspecified type LIPID PANEL, STANDARD Routine 07/06/2025 11:42 AM EDT Mixed hyperlipidemia COMPREHENSIVE METABOLIC PANEL Routine 07/06/2025 11:42 AM EDT Type 2 diabetes mellitus with hyperglycemia, without long-term current use of insulin (CMS/HCC) XR FOOT 3+ VIEWS RIGHT Routine 07/06/2025 11:13 AM EDT Chronic gout without tophus, unspecified cause, unspecified site POCT GLUCOSE Routine 06/29/2025 2:31 PM EDT Type 2 diabetes mellitus with hyperglycemia, without long-term current use of insulin (CMS/HCC) POCT GLYCATED HEMOGLOBIN, TOTAL Routine 06/29/2025 2:31 PM EDT Type 2 diabetes mellitus with hyperglycemia, without long-term current use of insulin ([facility]) HM COLONOSCOPY Routine 09/23/2024 from Last 3 Months or Most Recently Relevant to Health Maintenance Results * (ABNORMAL) Uric acid (08/31/2025 3:30 PM EDT) Only the most recent of2 resultswithin the time period is included. Uric Acid 8.8(H) 3.4 - 7.0 mg/dL [facility] Blood Venous blood specimen / Unknown 08/31/2025 3:30 PM EDT 08/31/2025 4:05 PM EDT [facility] LAB BLOOD ORDERABLES Final Re sult Performing Organization Address [facility] Co de Phone Number [facility] [address] [place] [phone] * (ABNORMAL) TSH (08/31/2025 3:30 PM EDT) Thyroid Stimulating Hormone 5.41(H) 0.32 - 4.0 uIU/mL [facility] Comment:Note: A sustained TS H level above 2.5 uIU/mL may warrant further investigation. TSH 3rd Generation ([facility]) Blood Venous blood specimen / Unknown 08/31/2025 3:30 PM EDT 08/31/2025 4:05 PM EDT [facility] LAB BLOOD ORDERABLES Final Re sult [facility] [address] [place] [phone] * PSA,Total (08/31/2025 3:30 PM EDT) Prostate Specific Antigen 1.33 <0.05 - 4.0 ng/mL [facility] Comment:PSA methodology: Abb shani Granado i ChemiluminescentMicroparticle Immunoassay (CMIA) Blood Venous blood specimen / Unknown 08/31/2025 3:30 PM EDT 08/31/2025 4:05 PM EDT [facility] LAB BLOOD ORDERABLES Final Re sult Performing Organization Address City/[facility] Co de Phone Number [facility] [address] [place] [phone] * (ABNORMAL) Lipid Panel, Standard (08/31/2025 3:30 PM EDT) Only the most recent of2 resultswithin the time period is included. Triglycerides 292(H) <150 mg/dL [facility] Comment:Desirable Triglyceri de: less than 150 mg/dLBorderline High Triglyceride 150-199 mg/dLHigh Triglyceride: 200-499 mg/dLVery High Triglyceride: greater than or equal to 5OO mg/dL Cholesterol 120 <200 mg/dL [facility] Comment:Desirable Cholestero l: less than 200 mg/dLBorderline High Cholesterol: 200-239 mg/dLHigh Cholesterol: greater than 239 mg/dL LDL Cholesterol Calculated 36 <100 mg/dL [facility] Comment:Desirable LDL: less than 100 mg/dLNear Optimal/Above Optimal LDL: 110- 129 mg/dLBorderline High LDL: 130-159 mg/dLHigh LDL: 160-189 mg/dLVery High LDL: greater than or equal to 190 mg/dL HDL Cholesterol 26(L) >40 mg/dL [facility] Comment:Desirable HDL: great er than 40 mg/dL Note: This HDL assay may give artificially low results in patients with liver disease. Blood Venous blood specimen / Unknown 08/31/2025 3:30 PM EDT 08/31/2025 4:05 PM EDT [facility] LAB BLOOD ORDERABLES Final Re sult [facility] [address] [place] [phone] * (ABNORMAL) Comprehensive Metabolic Panel (08/31/2025 3:30 PM EDT) Only the most recent of2 resultswithin the time period is included. Sodium 142 135 - 145 mmol/L [facility] Potassium 4.8 3.3 - 5.1 mmol/L [facility] Chloride 105 96 - 108 mmol/L [facility] Carbon Dioxide 32(H) 22 - 29 mmol/L [facility] Anion Gap 10(L) 12 - 20 [facility] Urea Nitrogen (BUN) 18(H) 9 - 16 mg/dL [facility] Creatinine, Serum 0.99 0.5 - 1.4 mg/dL [facility] Estimated Glomerular Filt Rate >60 [facility] Comment:Chronic Kidney Disea se: Estimated GFR < 60 mL/min/1.88s0Clryom Kidney Disease: Estimated GFR < 15 mL/min/1.73m2 Glucose 105 60 - 115 mg/dL [facility] Calcium 10.2 8.4 - 10.2 mg/dL [facility] Bilirubin, Total 0.5 0.0 - 1.0 mg/dL [facility] Aspartate Amino Transferase 39(H) 5 - 37 U/L [facility] Alanine Aminotransferase 66(H) 0 - 40 U/L [facility] Total Protein 8.4(H) 6.5 - 8.0 g/dL [facility] Albumin Level 5.3(H) 3.5 - 5.0 g/dL [facility] Alkaline Phosphatase 56 39 - 117 U/L [facility] Blood Venous blood specimen / Unknown 08/31/2025 3:30 PM EDT 08/31/2025 4:05 PM EDT [facility] LAB BLOOD ORDERABLES Final Re sult Performing Organization Address [facility]/ZIP Co de Phone Number [facility] [address] [place] [phone] * (ABNORMAL) Albumin, Random Urine W/Creatinine (08/31/2025 1:20 PM EDT) Only the most recent of2 resultswithin the time period is included. Creatinine, Urine 93.82 mg/dL [facility] Microalbumin Urine 310.0 mg/L [facility] Microalbum Creatinine Ratio Ur 330.4(H) <30 ug/mg cr [facility] Comment:Albumin/Creatinine R atio Reference Ranges: Normal: < 30 ug/mg creatinine Microalbuminuria: 30 - 300 ug/mg creatinineClinical Albuminuria: > 300 ug/mg creatinine Urine 08/31/2025 1:20 PM EDT 08/31/2025 3:59 PM EDT [facility] LAB URINE ORDERABLES Final Re sult Performing Organization Address [facility] Co de Phone Number [facility] [address] [place] [phone] * (ABNORMAL) TSH W/Reflex to FT4 (07/06/2025 11:42 AM EDT) TSH reflex Free T4 >100.00(H) 0.32 - 4.0 uIU/mL [facility] Blood Venous blood specimen / Unknown 07/06/2025 11:42 AM EDT 07/06/2025 2:34 PM EDT [facility] LAB BLOOD ORDERABLES Final Re sult Performing Organization Address City/[facility]/ZIP Co de Phone Number [facility] [address] [place] [phone] * (ABNORMAL) T4, Free (07/06/2025 11:42 AM EDT) Free T4 (Free Thyroxine) <0.42(L) 0.71 - 1.85 ng/dL [facility] 07/06/2025 11:4 2 AM EDT 07/06/2025 2:34 PM EDT [facility] LAB BLOOD ORDERABLES Final Re sult [facility] [address] [place] [phone] * XR Foot 3+ Views Right (07/06/2025 11:13 AM EDT) Anatomical Region Laterality Modality Lower Extremities, Foot Right Radiogra phic Imaging 07/06/2025 11:1 3 AM EDT Narrative 07/06/2025 12:37 PM EDT [address] [address] XRay Report Signed Patient: Sree Schwab MR#: [id number] : 1960 Acct:[id number] Age/Sex: 65 / M ADM Date: 07/06/25 Loc: KETTY.CL Attending Dr: [facility] Date of Service: 07/06/25 Procedure(s): XR foot RT min 3V Accession Number(s): [id number] cc: [facility] EXAMINATION: XR FOOT, RIGHT CLINICAL INFORMATION: 64 y.o male with hx of gout at first MCP joint COMPARISON: None available. TECHNIQUE: AP, lateral, and oblique views of the right foot. FINDINGS: Moderate enthesophytes are present involving fascial and Achilles attachments onto calcaneus. There are marginal osteophytes involving the tibial plafond. There are small marginal ossified involving the dorsal midfoot. There is hallux valgus deformity. There are degenerative changes with moderate marginal osteophytes involving the first MTP joint with mild joint space narrowing. There is a possible marginal erosion with overhanging margins involving the lateral first metatarsal head. There is also faint osteopenia involving the medial base of the proximal phalanx. There are marginal osteophytes involving the second PIP joint. 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 Suspected erosive change involving the medial base of the proximal phalanx of the great toe. Possible changes involving the lateral first metatarsal head. 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 Electronically signed by: Kiran Jay MD 07/06/2025 12:34 PM EDT RP Dictated By: Kiran Jay MD Signed By: <Electronically signed by Kiran Jay MD in OV> 07/06/25 1234 DD/ 1113 TD/TT: 07/06/25 1200 Deputy General Counsel: Procedure Note Donotuseinterpreter, Image - 07/06/[address] [address] XRay Report Signed Patient: Dutch SchwaboMR#: [id number] : 1960Acct:[id number] Age/Sex: 65 / MADM Date: 07/06/25 Loc: HO.HHCL Attending Dr: Abby DELUCA Ordering Physician: Abby Yoo Date of Service: 07/06/25 Procedure(s): XR foot RT min 3V Accession Number(s): [id number] cc: Abby Yoo [employer] TECHNICIAN EXAMINATION: XR FOOT, RIGHT CLINICAL INFORMATION: 64 y.o male with hx of gout at first MCP joint COMPARISON: None available. TECHNIQUE: AP, lateral, and oblique views of the right foot. FINDINGS: Moderate enthesophytes are present involving fascial and Achilles attachments onto calcaneus. There are marginal osteophytes involving the tibial plafond. There are small marginal ossified involving the dorsal midfoot. There is hallux valgus deformity. There are degenerative changes with moderate marginal osteophytes involving the first MTP joint with mild joint space narrowing. There is a possible marginal erosion with overhanging margins involving the lateral first metatarsal head. There is also faint osteopenia involving the medial base of the proximal phalanx. There are marginal osteophytes involving the second PIP joint. 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 Suspected erosive change involving the medial base of the proximal phalanx of the great toe. Possible changes involving the lateral first metatarsal head. 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 Electronically signed by: Kiran Jay MD 07/06/2025 12:34 PM EDT Dictated By: Kiran Jay MD Signed By: <Electronically signed by Kiran Jay MD in OV> 07/06/25 1234 DD/ 1113 TD/TT: 07/06/25 1200 Deputy General Counsel: [facility] IMG XR PROCEDURES Final Resul t * (ABNORMAL) POCT HGB A1C (06/29/2025 2:31 PM EDT) Pathologist [facility] Hemoglobin A1C 10.0(A) 4.0 - 5.7 % Blood 06/29/2025 2:31 PM EDT Result [facility] POINT OF CARE TEST ENTER/EDIT ORDERABLES Final Result * (ABNORMAL) POCT Glucose (06/29/2025 2:31 PM EDT) Glucose Blood, POC 353(A) 60 - 200 mg/dL Blood Capillary blood specimen / Unknown 06/29/2025 2:31 PM EDT Result [facility] POINT OF CARE TEST ENTER/EDIT ORDERABLES Final Result * (ABNORMAL) Colonoscopy (09/23/2024) Colonoscopy Abnormal( A) Normal Comment:09/23/24 C GI repea t 5 YEARS. Result [facility] Provider HEALTH MAINTENANCE Final Result from Last 3 Months or Most Recently Relevant to Health Maintenance Insurance MEDICARE Care Teams International Coordinator Relationship Specialty Start Date End Date Abby Yoo FNP [address] [place] [id number] PCP - General Family Medicine 06/04/23
--- OUTSIDE RECORDS SUMMARY | 2025-08-31 18:58 | XMS_ITS | Encounter Summary ---
Author Organization [employer] Address [address] [facility] 7t [place] [address] Care Team Providers Care Supply Chain Buyer Name Role Phone [facility] Primary Care Provider [phone] Reason for Visit * Reason Comments Med Refill Encounter Details Date Type Department Care Team ([facility] st Contact Info) Description 04/06/2024 Refill [facility] MEDICINE [address] [place], [place] [phone] [facility] [address] [place], [place] [phone] Onychomycosis Social History Tobacco Use Types Packs/Day Years [...] Description 09/20/2025 9:20 AM EST Office Visit [facility] OPTOMETRY [address] [place] [address] documented as of this encounter Visit Diagnoses Diagnosis Onychomycosis Dermatophytosis of nail documented in this encounter Additional Health Concerns Assessment Noted Time PHQ-9 Depression Total Score: 0 08/13/20 3:26 PM EDT documented as of this encounter Care Teams Supply Chain Buyer Relationship Specialty Start Date End Date Abby Yoo FNP [address] [place] [id number] PCP - General Family Medicine 06/04/23 documented as of this encounter
--- OUTSIDE RECORDS SUMMARY | 2025-08-31 18:58 | XMS_ITS | Encounter Summary ---
Author Organization [employer] Address [address] [facility] 7t [place] [address] Care Team Providers Care Development Officer Name Role Phone [facility] Primary Care Provider [phone] Reason for Visit * Reason Comments Med Refill Encounter Details Date Type Department Care Team ([facility] st Contact Info) Description 10/20/2023 Refill [facility] MEDICINE [address] [place], [place] [phone] [facility] 230 [place], [place] [phone] Type 2 diabetes mellitus with hyperglycemia, without long-term current use of insulin ([facility]) Social History Tobacco Use Types Packs/Day Years [...] 9:20 AM EST Office Visit [facility] OPTOMETRY [address] [place] [address] documented as of this encounter Visit Diagnoses Diagnosis Type 2 diabetes mellitus with hyperglycemia, without long-term current use of insulin (HCC) documented in this encounter Additional Health Concerns Assessment Noted Time PHQ-9 Depression Total Score: 0 08/13/20 3:26 PM EDT documented as of this encounter Care Teams Development Officer Relationship Specialty Start Date End Date Abby Yoo FNP [address] [place] [phone] PCP - General Family Medicine 06/04/23 documented as of this encounter
--- OUTSIDE RECORDS SUMMARY | 2025-08-31 18:58 | XMS_ITS | Encounter Summary ---
Author Organization [employer] Address [address] [facility] 7t [place] [address] Care Team Providers Care Cooper Helper Name Role Phone [facility] Primary Care Provider [phone] Encounter Details Date Type Department Care Team (Late Contact Info) Description 06/05/2023 Abstract [facility] MEDICINE [address] [place] [address] Abby Yoo [facility] [address] [place] [address] Social History Tobacco Use Types Packs/Day Years [...] Description 09/20/2025 9:20 AM EST Office Visit [facility] OPTOMETRY [address] [place] [address] documented as of this encounter Visit Diagnoses Not on filedocumented in this encounter Additional Health Concerns Assessment Noted Time PHQ-9 Depression Total Score: 0 06/04/20 10:59 AM EDT documented as of this encounter Care Teams Cooper Helper Relationship Specialty Start Date End Date Abby Yoo FNP [address] [place] [address] PCP - General Family Medicine 06/04/23 documented as of this encounter
--- OUTSIDE RECORDS SUMMARY | 2025-08-31 18:58 | XMS_ITS | Encounter Summary ---
Author Organization [employer] Address [address] [facility] 7t [place] [address] Care Team Providers Care Bushel Worker Name Role Phone [facility] Primary Care Provider [phone] Reason for Visit * Reason Comments Med Refill Encounter Details Date Type Department Care Team ([facility] st Contact Info) Description 09/11/2023 Refill [facility] MEDICINE [address] [place], [place] [phone] [facility] 230 [place], [place] [phone] Primary hypertension Social History Tobacco Use Types [...] Description 09/20/2025 9:20 AM EST Office Visit [facility] OPTOMETRY [address] [place] [address] documented as of this encounter Visit Diagnoses Diagnosis Primary hypertension Unspecified essential hypertension documented in this encounter Additional Health Concerns Assessment Noted Time PHQ-9 Depression Total Score: 0 08/13/20 3:26 PM EDT documented as of this encounter Care Teams Bushel Worker Relationship Specialty Start Date End Date Abby Yoo FNP [address] [place] [phone] PCP - General Family Medicine 06/04/23 documented as of this encounter
--- OUTSIDE RECORDS SUMMARY | 2025-08-31 18:58 | XMS_ITS | Encounter Summary ---
Author Organization [employer] Address [address] [facility] 7t [place] [address] Care Team Providers Care Director Of Investigations Name Role Phone [facility] Primary Care Provider [phone] Reason for Visit * Reason Comments Med Refill Encounter Details Date Type Department Care Team ([facility] st Contact Info) Description 07/12/2024 Refill [facility] MEDICINE [address] [place], [place] [phone] [facility] 230 [place], [place] [phone] Onychomycosis Social History Tobacco Use Types Packs/Day [...] Description 09/20/2025 9:20 AM EST Office Visit [facility] OPTOMETRY [address] [place] [address] documented as of this encounter Visit Diagnoses Diagnosis Onychomycosis Dermatophytosis of nail documented in this encounter Additional Health Concerns Assessment Noted Time PHQ-9 Depression Total Score: 0 08/13/20 3:26 PM EDT documented as of this encounter Care Teams Director Of Investigations Relationship Specialty Start Date End Date Abby Yoo FNP [address] [place] [phone] PCP - General Family Medicine 06/04/23 documented as of this encounter
--- OUTSIDE RECORDS SUMMARY | 2025-08-31 18:58 | XMS_ITS | Encounter Summary ---
Author Organization [employer] Address [address] [facility] 7t [place] [address] Care Team Providers Care Resourcing Advisor Name Role Phone [facility] Primary Care Provider [phone] Reason for Visit * Reason Comments Med Refill Encounter Details Date Type Department Care Team ([facility] st Contact Info) Description 08/25/2025 Refill [facility] MEDICINE [address] [place], [place] [phone] [facility] 230 [place], [place] [phone] Type 2 diabetes mellitus with hyperglycemia, without long-term current use of insulin (HCC) Social History Tobacco Use Types Packs/Day Years [...] Description 09/20/2025 9:20 AM EST Office Visit [facility] OPTOMETRY [address] [place] [phone] documented as of this encounter Visit Diagnoses Diagnosis Type 2 diabetes mellitus with hyperglycemia, without long-term current use of insulin (HCC) documented in this encounter Additional Health Concerns Assessment Noted Time PHQ-9 Depression Total Score: 0 06/29/20 25 2:25 PM EDT documented as of this encounter Care Teams Resourcing Advisor Relationship Specialty Start Date End Date Abby Yoo FNP [address] [place] [phone] PCP - General Family Medicine 06/04/23 documented as of this encounter
--- OUTSIDE RECORDS SUMMARY | 2025-08-31 18:58 | XMS_ITS | Encounter Summary ---
Author Organization [employer] Address [address] [facility] 7t [place] [address] Care Team Providers Care Stevedoring Superintendent Name Role Phone Abby Yoo CAMP[facility] ADMINISTRATOR Primary Care Provider [phone] Encounter Details Date Type Department Care Team (Latest Contact Info) Description 08/31/2025 Travel Social History Tobacco Use Types Packs/Day Years [...] Description 09/20/2025 9:20 AM EST Office Visit [facility] OPTOMETRY [address] [place] [address] documented as of this encounter Visit Diagnoses Not on filedocumented in this encounter Additional Health Concerns Assessment Noted Time PHQ-9 Depression Total Score: 0 06/29/20 25 2:25 PM EDT documented as of this encounter Care Teams Stevedoring Superintendent Relationship Specialty Start Date End Date Abby Yoo FNP [address] [place] [phone] PCP - General Family Medicine 06/04/23 documented as of this encounter
== END 2025-08-31 15:27 | disposition home or self-care (01) ==
LOC: HO.HHCL 15:26
PROVIDERS: PCP Registered Nurse; Visit Provider Registered Nurse
DX: Z00.00 Encounter for general adult medical examination without abnormal findings (principal); E11.65 Type 2 diabetes mellitus with hyperglycemia; M1A.9XX0 Chronic gout, unspecified, without tophus (tophi); E03.9 Hypothyroidism, unspecified; E78.2 Mixed hyperlipidemia; Z12.5 Encounter for screening for malignant neoplasm of prostate; E06.3 Autoimmune thyroiditis
CPT/HCPCS: 36415; 80053; 80061; 82043; 82570; 84153; 84443; 84550